=== PATIENT | female | born 1940 | race Caucasian/White ===

== ENCOUNTER → 2019-06-03 | Day surgery (SDC) | payer OTHER ==
[2019-06-01 14:47] LABS: Basophils # (auto) 0 uL; Basophils % (auto) 0.7 % (0.0-2.0); Eosinophils # (auto) 0 uL; Eosinophils % (auto) 0.6 % (0.0-7.0); Hematocrit 36.9 % (36.0-46.0); Hemoglobin 12.2 g/dL (12.2-16.2); Lymphocytes % (auto) 14.3 % (10.0-50.0); Mean Corpuscular Hemoglobin 29.8 pg (28.0-32.0); Mean Corpuscular Hgb Conc. 33.2 g/dL (32.0-36.0); Monocytes # (auto) 0.5 uL; Neutrophils # (auto) 5.2 uL; Neutrophils % (auto) 76.4 % (37.0-80.0); Nucleated Red Blood Cells % 0.1 %; Platelet Count (auto) 251 10^3/uL (140-450); Red Cell Distribution Width 13.6 % (11.8-14.3); White Blood Cell 6.8 10^3/uL (4.4-10.8)
[2019-06-01 15:06] LABS: INR 1.05 (0.9-1.15); Partial Thromboplastin Time 26.5 sec (23.64-32.05)
[2019-06-01 15:07] LABS: Albumin 3.4 g/dL (3.4-5.0); BUN/Creatinine Ratio 23.9; Calcium 9.1 mg/dL (8.5-10.1); Potassium 4.1 mmol/L (3.5-5.1)
[2019-06-01 15:09] LABS: Bilirubin, Total 0.5 mg/dL (0.2-1.0); Total Protein 8.1 g/dL (6.4-8.2)
[~2019-06-03] VITALS: Ht 170.2 cm; Wt 72.1 kg
[~2019-06-03] MED LIST: ESCI20TA PO; ESOM20CA PO; HYDR-4833 PO; HYDROCORTISONE SOD SUCC 100 MG/2ML INJ VIAL IV ONE; HYDROmorphone HCL 2 MG/ML VL IV PRN; HYDROmorphone HCL 2 MG/ML VL ONE; LIDOCAINE 1% HCL (LOCAL ANESTH.) INJ 20ML MDV ONE; MIDAZOLAM HCL 1MG/1ML-2 ML VIAL ONE; MORPHINE SULFATE 4 MG/ML SYR/VIAL IV PRN; ONDANSETRON HCL 4 MG/2 ML VIAL IV PRN; ONDANSETRON HCL 4 MG/2 ML VIAL ONE; PRE1T PO; PROPOFOL 10 MG/ML 20 ML IV ONE; ROCURONIUM 10MG/ML 10ML VIAL IV ONE; SODIUM CHLORIDE LOCK 10 ML ONE; SODIUM CHLORIDE LOCK 30 ML ONE; SUCCINYLCHOLINE CHLORIDE 20 MG/ML 10ML VIAL IV ONE; TEMA30CA PO; ceFAZolin 1GM/50ML 50 ML IV ONE; fentaNYL CITRATE 100 MCG/2 ML VL IV PRN; fentaNYL CITRATE 100 MCG/2 ML VL ONE; fentaNYL CITRATE 5 ML ONE
[2019-06-03 10:55] VITALS: BP 127/49
== END | disposition home or self-care (01) ==
LOC: SUR 06:18
PROVIDERS: ATTEND Orthopaedic Surgery
DX: S52.021A Displaced fracture of olecranon process without intraarticular extension of right ulna, initial encounter for closed fracture (principal); M70.21 Olecranon bursitis, right elbow; J44.9 Chronic obstructive pulmonary disease, unspecified; K21.9 Gastro-esophageal reflux disease without esophagitis; F32.9 Major depressive disorder, single episode, unspecified; Z79.899 Other long term (current) drug therapy; Z98.890 Other specified postprocedural states; X58.XXXA Exposure to other specified factors, initial encounter; Y93.89 Activity, other specified; Y92.89 Other specified places as the place of occurrence of the external cause; Y99.8 Other external cause status
CPT/HCPCS: 24685; 36415; 73070; 80053; 85025; 85610; 85730; J0330; J0690; J1170; J1720; J2001; J2250; J2270; J2405; J2704; J3010; 76000

== ENCOUNTER 2023-05-07 12:55 | Inpatient (IN) | payer OTHER ==
[~2023-05-07] VITALS: Ht 157.5 cm; Wt 51.9 kg
[~2023-05-07 12:55] MED LIST changes: -HYDROCORTISONE SOD SUCC 100 MG/2ML INJ VIAL IV ONE; -HYDROmorphone HCL 2 MG/ML VL IV PRN; -HYDROmorphone HCL 2 MG/ML VL ONE; -LIDOCAINE 1% HCL (LOCAL ANESTH.) INJ 20ML MDV ONE; -MIDAZOLAM HCL 1MG/1ML-2 ML VIAL ONE; -MORPHINE SULFATE 4 MG/ML SYR/VIAL IV PRN; -ONDANSETRON HCL 4 MG/2 ML VIAL IV PRN; -ONDANSETRON HCL 4 MG/2 ML VIAL ONE; -PROPOFOL 10 MG/ML 20 ML IV ONE; -ROCURONIUM 10MG/ML 10ML VIAL IV ONE; -SODIUM CHLORIDE LOCK 10 ML ONE; -SODIUM CHLORIDE LOCK 30 ML ONE; -SUCCINYLCHOLINE CHLORIDE 20 MG/ML 10ML VIAL IV ONE; -ceFAZolin 1GM/50ML 50 ML IV ONE; -fentaNYL CITRATE 100 MCG/2 ML VL IV PRN; -fentaNYL CITRATE 100 MCG/2 ML VL ONE; -fentaNYL CITRATE 5 ML ONE
[2023-05-07 14:51] LABS: Alanine Aminotransferase 44 U/L (7-40); Alkaline Phosphatase 123 U/L (46-116); Calcium 9.8 mg/dL (8.7-10.4)
[2023-05-07 14:52] LABS: Albumin 4.1 g/dL (3.2-4.8); Anion Gap 10 (5-15); Aspartate Aminotransferase 18 U/L (13-40); BUN/Creatinine Ratio 34.5 (10.0-20.0); Bilirubin, Total 0.6 mg/dL (0.2-1.0); Blood Urea Nitrogen 19 mg/dL (9-23); Carbon Dioxide 24 mmol/L (20-30); Chloride 106 mmol/L (98-107); Glucose 95 mg/dL (74-106); Potassium 4.3 mmol/L (3.5-5.1); Sodium 140 mmol/L (136-145); Total Protein 7.2 g/dL (5.7-8.2)
[2023-05-07 14:57] LABS: INR 1.11 (0.9-1.15); Partial Thromboplastin Time 32.2 SEC (24.5-34.5); Prothrombin Time 11.6 sec (9.3-11.8)
[2023-05-07 15:11] LABS: Basophils # (auto) 0.1 10 ^3/uL (0-0.2); Basophils % (auto) 0.6 % (0.0-2.0); Eosinophils # (auto) 0 10 ^3/uL (0-0.8); Eosinophils % (auto) 0.3 % (0.0-7.0); Hematocrit 40.2 % (36.0-46.0); Hemoglobin 12.7 g/dL (12.2-16.2); Lymphocytes % (auto) 7.4 % (10.0-50.0); Mean Corpuscular Hgb Conc. 31.7 g/dL (32.0-36.0); Mean Corpuscular Volume 88.4 fL (80.0-100.0); Monocytes # (auto) 0.6 10 ^3/uL (0-1.3); Monocytes % (auto) 4.4 % (0.0-12.0); Neutrophils # (auto) 11.7 10 ^3/uL (1.6-8.6); Neutrophils % (auto) 87.3 % (37.0-80.0); Red Blood Cells 4.55 10^6/uL (4.0-5.20); Red Cell Distribution Width 15.6 % (11.8-14.3); White Blood Cell 13.4 10^3/uL (4.4-10.8)
[2023-05-07] MEDS ORDERED: NITROGLYCERIN 0.4 MG SL TAB SL PRN (15:30)
[2023-05-07] MEDS ORDERED: ONDANSETRON HCL 4 MG/2 ML VIAL IV PRN (15:30)
[2023-05-07] MEDS ORDERED: MORPHINE SULFATE INJ 2 MG/ml SYRG IV PRN (15:30)
[2023-05-07] MEDS ORDERED: POLYETHYLENE GLYCOL 17 GM PWDR PO PRN (16:30)
[2023-05-07 17:00] VITALS: PULSE 105; RESP 16; O2SAT 92
[2023-05-07] MEDS: AZITHROMYCIN 250 MG TAB PO SCH (18:02)
[2023-05-07] MEDS: HYDROcodone-ACET 5/325MG TAB PO PRN (18:02)
[2023-05-07] MEDS: cefTRIAXone 1GM/50ML D5W 50 ML IV SCH (18:03)
[2023-05-07] MEDS: SODIUM CHLORIDE 0.9% 1,000 ML IV SCH (18:03)
[2023-05-07 18:52] VITALS: BP_SYST 117; BP_SYST 122; BP_DIAS 52; BP_DIAS 67; PULSE 100; PULSE 108; RESP 16; RESP 18; TEMP 97.5; TEMP 99.5; O2SAT 97; O2SAT 98
[2023-05-07 20:00] VITALS: BP 139/82; PULSE 100; PULSE 78; RESP 16; RESP 20; TEMP 97.4; O2SAT 97
[2023-05-07] MEDS ORDERED: APIX2.5T PO (20:41)
[2023-05-08] VITALS (8 sets, daily range): BP systolic 110–128; BP diastolic 56–65; PULSE 84–111; RESP 16–20; TEMP 97.4–99.7; O2SAT 93–98
[2023-05-08] MEDS: HYDROcodone-ACET 5/325MG TAB PO PRN ×2 (00:16→23:53)
[2023-05-08] MEDS: SODIUM CHLORIDE 0.9% 1,000 ML IV SCH ×2 (05:35→18:55)
[2023-05-08 07:27] LABS: Alanine Aminotransferase 30 U/L (7-40); Albumin 3.7 g/dL (3.2-4.8); Alkaline Phosphatase 101 U/L (46-116); Anion Gap 10 (5-15); Aspartate Aminotransferase 15 U/L (13-40); BUN/Creatinine Ratio 24.1 (10.0-20.0); Bilirubin, Total 0.7 mg/dL (0.2-1.0); Blood Urea Nitrogen 14 mg/dL (9-23); Calcium 9.7 mg/dL (8.5-10.1); Carbon Dioxide 25 mmol/L (20-30); Chloride 104 mmol/L (98-107); Glucose 64 mg/dL (74-106); Potassium 4.4 mmol/L (3.5-5.1); Sodium 139 mmol/L (136-145)
[2023-05-08 07:28] LABS: Basophils # (auto) 0.1 10 ^3/uL (0-0.2); Eosinophils # (auto) 0 10 ^3/uL (0-0.8); Eosinophils % (auto) 0.5 % (0.0-7.0); Hematocrit 32.9 % (36.0-46.0); Hemoglobin 10.8 g/dL (12.2-16.2); Lymphocytes # (auto) 1.3 10 ^3/uL (0.4-5.4); Lymphocytes % (auto) 12.2 % (10.0-50.0); Mean Corpuscular Hemoglobin 28.8 pg (28.0-32.0); Mean Corpuscular Hgb Conc. 32.8 g/dL (32.0-36.0); Mean Corpuscular Volume 87.7 fL (80.0-100.0); Monocytes # (auto) 0.9 10 ^3/uL (0-1.3); Monocytes % (auto) 8.7 % (0.0-12.0); Neutrophils # (auto) 8.1 10 ^3/uL (1.6-8.6); Neutrophils % (auto) 77.6 % (37.0-80.0); Red Blood Cells 3.76 10^6/uL (4.0-5.20); Red Cell Distribution Width 15.7 % (11.8-14.3); Total Protein 6.6 g/dL (5.7-8.2); White Blood Cell 10.4 10^3/uL (4.4-10.8)
[2023-05-08] MEDS ORDERED: ERGOCALCIFEROL 50,000 UNIT(1.25MG) CAP PO SCH (08:30)
[2023-05-08] MEDS: AZITHROMYCIN 250 MG TAB PO SCH (09:05)
[2023-05-08] MEDS: cefTRIAXone 1GM/50ML D5W 50 ML IV SCH (09:05)
[2023-05-08] MEDS: MORPHINE SULFATE INJ 2 MG/ml SYRG IV PRN (09:19)
[2023-05-08] MEDS: ENOXAPARIN SOD 40 MG/0.4 ML SYRINGE SC SCH (10:00)
[2023-05-08 10:58] LABS: % Iron Saturation 13.7 % (15-50)
[2023-05-08] MEDS ORDERED: ceFAZolin 2 GM/D5W100ml 100 ML IV ONE (14:07)
[2023-05-08] MEDS ORDERED: ONDANSETRON HCL 4 MG/2 ML VIAL ONE (14:29)
[2023-05-08] MEDS ORDERED: MIDAZOLAM HCL 2MG/2ML 2ml VIAL (1mg/ml) ONE (14:29)
[2023-05-08] MEDS ORDERED: PROPOFOL 10 MG/ML 20 ML IV ONE (14:29)
[2023-05-08] MEDS ORDERED: fentaNYL CITRATE 100 MCG/2 ML VL ONE (14:29)
[2023-05-08] MEDS ORDERED: SODIUM CHLORIDE LOCK 10 ML ONE (14:29)
[2023-05-08] MEDS ORDERED: BUPIVACAINE 0.5% P/F INJ 10 ML VIAL ONE (14:40)
[2023-05-08] MEDS ORDERED: BUPIVACAINE HCL 0.25% P/F 10 ML VIAL ONE (14:40)
[2023-05-08] MEDS ORDERED: TRANEXAMIC ACID 10 ML ONE (14:41)
[2023-05-08] MEDS ORDERED: LIDOCAINE 1% HCL (LOCAL ANESTH.) INJ 20ML MDV ONE (15:01)
[2023-05-08] MEDS ORDERED: BUPIVACAINE HCL 50 ML ONE (15:18)
[2023-05-08] MEDS ORDERED: IPRATROPIUM BROM 0.5 MG/2.5ML INH SOL NEB ONE (16:45)
[2023-05-08] MEDS ORDERED: IPRATROPIUM BROM 0.5 MG/2.5ML INH SOL ONE (16:45)
[2023-05-08] MEDS ORDERED: MORPHINE SULFATE INJ 2 MG/ml SYRG IV PRN (16:45)
[2023-05-08] MEDS ORDERED: HYDROmorphone HCL 2 MG/ML VL/or syr IV PRN ×2 (16:45)
[2023-05-08] MEDS ORDERED: METOCLOPRAMIDE HCL 5MG/ml INJ 2ml VIAL IV PRN (16:45)
[2023-05-08] MEDS ORDERED: ALBUTEROL SULF 2.5 MG/0.5ML(0.5%) NEB SOLN ONE (16:45)
[2023-05-08] MEDS ORDERED: ALBUTEROL SULF 2.5 MG/0.5ML(0.5%) NEB SOLN NEB ONE (16:45)
[2023-05-08] MEDS: LACTATED RINGER'S 1,000 ML IV SCH (18:54)
[2023-05-08] MEDS: SERTRALINE HCL 50 MG TAB PO SCH (21:14)
[2023-05-09] VITALS (8 sets, daily range): BP systolic 99–128; BP diastolic 36–101; PULSE 86–106; RESP 16–19; TEMP 97.5–98.8; O2SAT 91–94
[2023-05-09 05:06] LABS: Urine Bacteria FEW /hpf (None Seen); Urine Blood 2+ /uL (Negative); Urine Clarity Clear (Clear); Urine Hyaline Cast FEW /lpf (0 - 2); Urine Mucus FEW (None Seen); Urine Protein, UAD Negative (Negative); Urine Specific Gravity 1.013 (1.001-1.035); Urine Urobilinogen Normal (Negative); Urine WBC 1 /hpf (0 - 5)
[2023-05-09] MEDS: LACTATED RINGER'S 1,000 ML IV SCH ×3 (05:06→21:51)
[2023-05-09 05:08] LABS: Urine Color Straw (Yellow)
[2023-05-09 06:22] LABS: Basophils # (auto) 0 10 ^3/uL (0-0.2); Basophils % (auto) 0.1 % (0.0-2.0); Eosinophils # (auto) 0 10 ^3/uL (0-0.8); Hematocrit 29.5 % (36.0-46.0); Hemoglobin 9.6 g/dL (12.2-16.2); Lymphocytes # (auto) 0.5 10 ^3/uL (0.4-5.4); Mean Corpuscular Hemoglobin 28.4 pg (28.0-32.0); Mean Corpuscular Hgb Conc. 32.6 g/dL (32.0-36.0); Mean Corpuscular Volume 87.2 fL (80.0-100.0); Monocytes # (auto) 0.6 10 ^3/uL (0-1.3); Monocytes % (auto) 4.9 % (0.0-12.0); Neutrophils # (auto) 10.6 10 ^3/uL (1.6-8.6); Red Blood Cells 3.38 10^6/uL (4.0-5.20); Red Cell Distribution Width 14.8 % (11.8-14.3); White Blood Cell 11.7 10^3/uL (4.4-10.8)
[2023-05-09 06:31] LABS: Alanine Aminotransferase 23 U/L (7-40); Albumin 3.3 g/dL (3.2-4.8); Alkaline Phosphatase 87 U/L (46-116); Anion Gap 5 (5-15); Aspartate Aminotransferase 17 U/L (13-40); BUN/Creatinine Ratio 23.1 (10.0-20.0); Bilirubin, Total 0.3 mg/dL (0.2-1.0); Blood Urea Nitrogen 12 mg/dL (9-23); Calcium 8.8 mg/dL (8.7-10.4); Carbon Dioxide 26 mmol/L (20-30); Chloride 105 mmol/L (98-107); Glucose 203 mg/dL (74-106); Potassium 4.4 mmol/L (3.5-5.1); Sodium 136 mmol/L (136-145)
[2023-05-09] MEDS: SODIUM CHLORIDE 0.9% 1,000 ML IV SCH ×2 (08:15→13:12)
[2023-05-09] MEDS: AZITHROMYCIN 250 MG TAB PO SCH (08:30)
[2023-05-09] MEDS: ENOXAPARIN SOD 40 MG/0.4 ML SYRINGE SC SCH (08:31)
[2023-05-09] MEDS: cefTRIAXone 1GM/50ML D5W 50 ML IV SCH (08:31)
[2023-05-09] MEDS: HYDROcodone-ACET 5/325MG TAB PO PRN ×2 (08:50→17:11)
[2023-05-09] MEDS: SERTRALINE HCL 50 MG TAB PO SCH (08:52)
[2023-05-09] MEDS ORDERED: IRON SUCROSE COMPLEX 200 MG in SODIUM CHL 0.9% 100 ML IV SCH (12:00)
[2023-05-09] MEDS: SODIUM FERR GLUC 125 MG in NS 100 ML IV SCH (13:09)
[2023-05-10] VITALS (7 sets, daily range): BP systolic 93–121; BP diastolic 39–76; PULSE 65–109; RESP 16–19; TEMP 97.3–98.3; O2SAT 91–98
[2023-05-10] MEDS: ACETAMINOPHEN 325 MG TAB PO PRN ×2 (00:38→22:21)
[2023-05-10] MEDS: LACTATED RINGER'S 1,000 ML IV SCH (08:45)
[2023-05-10] MEDS ORDERED: ENOXAPARIN SOD 40 MG/0.4 ML SYRINGE SC ONE (09:59)
[2023-05-10] MEDS ORDERED: AZITHROMYCIN 250 MG TAB PO ONE (09:59)
[2023-05-10] MEDS ORDERED: cefTRIAXone 1GM/50ML D5W 50 ML IV ONE (09:59)
[2023-05-10] MEDS ORDERED: SERTRALINE HCL 50 MG TAB ONE (09:59)
[2023-05-10] MEDS: SERTRALINE HCL 50 MG TAB PO SCH (10:00)
[2023-05-10 10:15] LABS: Basophils # (auto) 0.1 10 ^3/uL (0-0.2); Basophils % (auto) 0.5 % (0.0-2.0); Eosinophils # (auto) 0.1 10 ^3/uL (0-0.8); Eosinophils % (auto) 0.7 % (0.0-7.0); Hematocrit 27.6 % (36.0-46.0); Lymphocytes # (auto) 0.8 10 ^3/uL (0.4-5.4); Lymphocytes % (auto) 6.9 % (10.0-50.0); Mean Corpuscular Hemoglobin 28.1 pg (28.0-32.0); Mean Corpuscular Hgb Conc. 32.5 g/dL (32.0-36.0); Mean Corpuscular Volume 86.5 fL (80.0-100.0); Monocytes # (auto) 0.8 10 ^3/uL (0-1.3); Monocytes % (auto) 6.7 % (0.0-12.0); Neutrophils # (auto) 9.8 10 ^3/uL (1.6-8.6); Neutrophils % (auto) 85.2 % (37.0-80.0); Red Blood Cells 3.19 10^6/uL (4.0-5.20); Red Cell Distribution Width 15.6 % (11.8-14.3); White Blood Cell 11.5 10^3/uL (4.4-10.8)
[2023-05-10] MEDS: cefTRIAXone 1GM/50ML D5W 50 ML IV SCH (10:17)
[2023-05-10] MEDS: SODIUM CHLORIDE 0.9% 1,000 ML IV SCH (10:26)
[2023-05-10] MEDS: AZITHROMYCIN 250 MG TAB PO SCH (10:26)
[2023-05-10] MEDS: ENOXAPARIN SOD 40 MG/0.4 ML SYRINGE SC SCH (10:32)
[2023-05-10 10:33] LABS: Alanine Aminotransferase 22 U/L (7-40); Alkaline Phosphatase 74 U/L (46-116); Anion Gap 3 (5-15); Aspartate Aminotransferase 16 U/L (13-40); BUN/Creatinine Ratio 33.3 (10.0-20.0); Blood Urea Nitrogen 14 mg/dL (9-23); Calcium 9.2 mg/dL (8.5-10.1); Carbon Dioxide 33 mmol/L (20-30); Chloride 106 mmol/L (98-107); Glucose 97 mg/dL (74-106); Potassium 3.9 mmol/L (3.5-5.1); Sodium 142 mmol/L (136-145)
[2023-05-10 10:34] LABS: Bilirubin, Total 0.3 mg/dL (0.2-1.0); Total Protein 5.3 g/dL (5.7-8.2)
[2023-05-10] MEDS: SODIUM FERR GLUC 125 MG in NS 100 ML IV SCH (11:42)
[2023-05-10] MEDS: HYDROcodone-ACET 5/325MG TAB PO PRN (15:00)
[2023-05-11] MEDS: SODIUM CHLORIDE 0.9% 1,000 ML IV SCH ×2 (00:15→08:59)
[2023-05-11 05:00] VITALS: BP 148/77; PULSE 87; RESP 18; TEMP 97.8; O2SAT 94
[2023-05-11 06:51] LABS: Basophils # (auto) 0.1 10 ^3/uL (0-0.2); Basophils % (auto) 0.5 % (0.0-2.0); Eosinophils # (auto) 0 10 ^3/uL (0-0.8); Eosinophils % (auto) 0.5 % (0.0-7.0); Hematocrit 28.7 % (36.0-46.0); Hemoglobin 9.5 g/dL (12.2-16.2); Lymphocytes # (auto) 0.6 10 ^3/uL (0.4-5.4); Lymphocytes % (auto) 6.6 % (10.0-50.0); Mean Corpuscular Hemoglobin 28.3 pg (28.0-32.0); Mean Corpuscular Volume 85.7 fL (80.0-100.0); Monocytes # (auto) 0.6 10 ^3/uL (0-1.3); Neutrophils % (auto) 86.4 % (37.0-80.0); Nucleated Red Blood Cells % 0.1 %; Red Blood Cells 3.34 10^6/uL (4.0-5.20); Red Cell Distribution Width 15.3 % (11.8-14.3); White Blood Cell 9.3 10^3/uL (4.4-10.8)
[2023-05-11 06:53] LABS: Alanine Aminotransferase 14 U/L (7-40); Albumin 3.1 g/dL (3.2-4.8); Alkaline Phosphatase 72 U/L (46-116); Anion Gap 5 (5-15); Aspartate Aminotransferase 17 U/L (13-40); BUN/Creatinine Ratio 20.9 (10.0-20.0); Bilirubin, Total 0.5 mg/dL (0.2-1.0); Blood Urea Nitrogen 9 mg/dL (9-23); Calcium 8.7 mg/dL (8.7-10.4); Carbon Dioxide 30 mmol/L (20-30); Chloride 103 mmol/L (98-107); Glucose 106 mg/dL (74-106); Potassium 3.4 mmol/L (3.5-5.1); Sodium 138 mmol/L (136-145); Total Protein 5.7 g/dL (5.7-8.2)
[2023-05-11 08:00] VITALS: BP 118/58; PULSE 99; RESP 18; TEMP 98; O2SAT 95
[2023-05-11] MEDS: ENOXAPARIN SOD 40 MG/0.4 ML SYRINGE SC SCH (08:55)
[2023-05-11] MEDS: cefTRIAXone 1GM/50ML D5W 50 ML IV SCH (08:55)
[2023-05-11] MEDS: AZITHROMYCIN 250 MG TAB PO SCH (08:55)
[2023-05-11] MEDS: SERTRALINE HCL 50 MG TAB PO SCH (08:56)
[2023-05-11 09:00] VITALS: BP 118/58; PULSE 99; RESP 18; TEMP 98; O2SAT 95
[2023-05-11 13:00] VITALS: BP 106/61; PULSE 94; RESP 20; TEMP 99; O2SAT 97
[2023-05-11] MEDS ORDERED: POTASSIUM CHL 20 Meq TABLET PO ONE (14:00)
[2023-05-11] MEDS: HYDROcodone-ACET 5/325MG TAB PO PRN ×2 (14:08→19:45)
[2023-05-11 20:00] VITALS: O2SAT 95
[2023-05-11 22:00] VITALS: BP 109/47; PULSE 84; RESP 20; TEMP 97.8; O2SAT 95
[2023-05-12] MEDS: SODIUM CHLORIDE 0.9% 1,000 ML IV SCH (03:23)
[2023-05-12 05:00] VITALS: BP 147/64; PULSE 89; RESP 18; TEMP 98; O2SAT 96
[2023-05-12] MEDS: HYDROcodone-ACET 5/325MG TAB PO PRN (05:07)
[2023-05-12 08:00] VITALS: BP 118/72; PULSE 88; RESP 18; TEMP 97.4; O2SAT 97
[2023-05-12 08:29] LABS: Basophils # (auto) 0 10 ^3/uL (0-0.2); Basophils % (auto) 0.5 % (0.0-2.0); Eosinophils # (auto) 0.1 10 ^3/uL (0-0.8); Eosinophils % (auto) 0.7 % (0.0-7.0); Hematocrit 28.7 % (36.0-46.0); Hemoglobin 9.4 g/dL (12.2-16.2); Lymphocytes # (auto) 0.7 10 ^3/uL (0.4-5.4); Mean Corpuscular Hemoglobin 28.3 pg (28.0-32.0); Mean Corpuscular Hgb Conc. 32.9 g/dL (32.0-36.0); Mean Corpuscular Volume 86.2 fL (80.0-100.0); Monocytes # (auto) 0.5 10 ^3/uL (0-1.3); Monocytes % (auto) 5.6 % (0.0-12.0); Neutrophils # (auto) 7.4 10 ^3/uL (1.6-8.6); Neutrophils % (auto) 85.2 % (37.0-80.0); Nucleated Red Blood Cells % 0.1 %; Red Blood Cells 3.33 10^6/uL (4.0-5.20); Red Cell Distribution Width 15.2 % (11.8-14.3); White Blood Cell 8.7 10^3/uL (4.4-10.8)
[2023-05-12 08:35] VITALS: BP 118/72; PULSE 88; RESP 18; TEMP 97.4; O2SAT 97
[2023-05-12 08:48] LABS: Chloride 104 mmol/L (98-107); Potassium 4.5 mmol/L (3.5-5.1); Sodium 137 mmol/L (136-145)
[2023-05-12 08:49] LABS: Anion Gap 3 (5-15); Carbon Dioxide 30 mmol/L (20-30)
[2023-05-12 08:55] LABS: BUN/Creatinine Ratio 21.3 (10.0-20.0); Blood Urea Nitrogen 10 mg/dL (9-23); Glucose 157 mg/dL (74-106)
[2023-05-12] MEDS: ENOXAPARIN SOD 40 MG/0.4 ML SYRINGE SC SCH (09:06)
[2023-05-12] MEDS: AZITHROMYCIN 250 MG TAB PO SCH (09:06)
[2023-05-12] MEDS: cefTRIAXone 1GM/50ML D5W 50 ML IV SCH (09:06)
[2023-05-12] MEDS: SERTRALINE HCL 50 MG TAB PO SCH (09:07)
[2023-05-12] MEDS ORDERED: ACET-1882 PO (10:46)
[2023-05-12] MEDS ORDERED: SERT50TA PO (10:46)
[2023-05-12] MEDS ORDERED: ERGO1CAP23 PO (10:46)
[2023-05-12] MEDS ORDERED: ENO40SY SC (10:46)
[2023-05-12] MEDS ORDERED: FER325T PO (10:50)
[2023-05-12 12:30] VITALS: BP 127/61; PULSE 86; RESP 18; TEMP 97.6; O2SAT 98
[2023-05-12 12:36] VITALS: BP 127/61; PULSE 86; RESP 18; TEMP 97.6; O2SAT 98
[2023-05-12 14:44] VITALS: BP 133/54; PULSE 99; RESP 17
[2023-05-12] MEDS: MORPHINE SULFATE INJ 2 MG/ml SYRG IV PRN (14:44)
== END 2023-05-12 14:55 | DRG 480 ==
LOC: ER 12:55 → EDBD 12:55 → WEST WING 15:28 → OVERFLOW 15:28 → TELE-WESTW 18:50 → WEST WING 05-08 02:38
PROVIDERS: ADMIT Internal Medicine; ATTEND Internal Medicine
PROC: 0QS634Z Reposition Right Upper Femur with Internal Fixation Device, Percutaneous Approach (ICD-10-PCS; principal; 2023-05-08 14:46)
DX: S72.141A Displaced intertrochanteric fracture of right femur, initial encounter for closed fracture (principal); J15.69 Pneumonia due to other Gram-negative bacteria; I50.32 Chronic diastolic (congestive) heart failure; R65.10 Systemic inflammatory response syndrome (SIRS) of non-infectious origin without acute organ dysfunction; D62 Acute posthemorrhagic anemia; J84.10 Pulmonary fibrosis, unspecified; E87.6 Hypokalemia; E55.9 Vitamin D deficiency, unspecified; F03.90 Unspecified dementia, unspecified severity, without behavioral disturbance, psychotic disturbance, mood disturbance, and anxiety; Z74.01 Bed confinement status; R74.01 Elevation of levels of liver transaminase levels; D72.829 Elevated white blood cell count, unspecified; Z66 Do not resuscitate; D63.8 Anemia in other chronic diseases classified elsewhere; Y93.89 Activity, other specified; Y99.8 Other external cause status; W06.XXXA Fall from bed, initial encounter; Y92.89 Other specified places as the place of occurrence of the external cause
CPT/HCPCS: 36415; 70450; 71045; 72125; 72170; 73502; 74176; 76000; 80048; 80053; 81001; 82306; 82607; 83540; 83550; 83605; 84443; 84484; 85025; 85610; 85730; 86850; 86900; 86901; 87081; 93005; 93306; 94640; 96365; 97110; 97116; 97163; 97530; A4565; G0378; J2001; J2250; J2405; J2704; J3490